=== PATIENT | male | born 1960 | race Caucasian/White ===

== ENCOUNTER 2025-04-09 08:07 | Emergency (ER) | payer OTHER ==
[2025-04-09] MEDS ORDERED: Dexamethasone 10 MG/ML VIAL ONE (08:28)
[2025-04-09 09:04] LABS: #Basophils 0.05 10x3/uL (0.0-0.2); #Eosinophils 0.28 10x3/uL (0.0-0.5); #Monocytes 1.10 10x3/uL (0.0-1.1); #Neutrophils 5.67 10x3/uL (1.5-8.4); %Basophils 0.5 % (0.0-2.0); %Eosinophils 2.8 % (0.0-6.0); %Lymphocytes 28.4 % (18.0-47.0); %Monocytes 11.1 % (0.0-10.0); %Neutrophils 57.0 % (40.0-75.0); Hematocrit 30.1 % (38.8-50.0); Hemoglobin 9.8 g/dL (13.5-17.5); Mean Corpuscular Hemoglobin 28.4 pg (27.0-33.0); Mean Corpuscular Volume 87.2 fL (81.2-95.1); Platelet Count 273 10x3/uL (150-450); Red Blood Cell (RBC) Count 3.45 10x6/uL (4.32-5.72); White Blood Cell (WBC) Count 9.95 10x3/uL (3.5-10.5)
[2025-04-09 09:05] LABS: Actual Bicarbonate (HCO3v) 26.5 mEq/L (22-28); Analyzer IN Cardio CS ER; Base Excess 1.6 mEq/L (-2 - +2); Calcium, Ionized (venous) 1.15 mmol/L (1.16-1.32); Chloride (VBG) 96 mmol/L (98-106); Critical Notified By: S. Buerger, RRT; Hematocrit-VBG 31 % (42.0-52.0); Hemoglobin (Hb) 10.6 g/dL (12.6-17.4); Potassium (VBG) 4.52 mmol/L (3.70-5.30); Puncture Site Other Site; RapidComm Collect By lab; Sodium 132 mmol/L (133-146)
[2025-04-09 09:22] LABS: ALT (SGPT) 48 U/L (Less than 45); AST (SGOT) 31 U/L (11-34); Albumin 2.7 g/dL (3.1-4.5); Alkaline Phosphatase 81 U/L (40-110); Anion Gap 13 mmol/L (10-20); BUN (Urea Nitrogen) 23 mg/dL (8.4-25.7); Bilirubin, Total 0.2 mg/dL (0.3-1.2); Calc. Creatinine Clearance 0 mL/min (70-130); Calcium 8.6 mg/dL (7.8-10.44); Carbon Dioxide 26 mmol/L (23-31); Chloride 98 mmol/L (98-107); Globulin 5.0 g/dL (2.4-3.5); Glucose 95 mg/dL (80-115); Potassium 4.5 mmol/L (3.5-5.1); Sodium 132 mmol/L (136-145)
[2025-04-09 09:25] LABS: Troponin I Less than 0.010 ng/mL (< 0.028)
[2025-04-09] MEDS ORDERED: Cefepime 2 GM VIAL ONE (10:03)
[2025-04-09] MEDS ORDERED: Vancomycin 1.5 GRAM/300 ML BAG 1.5 GM in Premix 1 BAG IVPB SCH (10:15)
[2025-04-09] MEDS ORDERED: Iopamidol 370 76% 100 ML VIAL ONE (12:13)
== END 2025-04-09 18:27 | disposition short-term general hospital (02) ==
LOC: CSHERS 08:07 → EEVIPCON 08:07 → CSHERS 18:27
DX: J18.9 Pneumonia, unspecified organism (principal); J90 Pleural effusion, not elsewhere classified; R22.1 Localized swelling, mass and lump, neck; I10 Essential (primary) hypertension; E03.9 Hypothyroidism, unspecified; Z79.890 Hormone replacement therapy; Z79.899 Other long term (current) drug therapy
CPT/HCPCS: 36415; 70491; 71045; 71275; 80053; 82805; 84484; 85025; 87428; 93005; 94760; 96365; 96366; 96367; 96375; J0692; J1100; J3373; Q9967